=== PATIENT | female | born 1935 | race Caucasian/White ===

== ENCOUNTER → 2016-10-07 | Outpatient (CLI) | payer MEDICARE, OTHER ==
--- NOTE | 2016-10-07 17:58 | Diagnostic Imaging Report ---
PA and lateral views of the chest. Indication dyspnea. The shortness of breath. Findings: The lungs are hyperinflated with minimal right basilar atelectasis. The heart size is borderline in size. No effusion or pneumothorax. The mediastinum and joaquín appear markable. Impression: COPD. Borderline cardiac size. Minimal right basilar atelectasis. Dictated by: Dictated on workstation # [id number]
== END ==
LOC: RAD 14:49
PROVIDERS: ATTEND Internal Medicine Critical Care Medicine
DX: J45.909 Unspecified asthma, uncomplicated (principal); R06.00 Dyspnea, unspecified; E66.9 Obesity, unspecified; G47.33 Obstructive sleep apnea (adult) (pediatric)
CPT/HCPCS: 71020

== ENCOUNTER → 2016-11-30 | Outpatient (CLI) | payer MEDICARE, OTHER ==
[~2016-11-30] MED LIST: CATHETER FLUSH 10 ML SYR IV PRN; IOHEXOL 350 MG/ML 100 ML (OMNIPAQUE 350) VIAL IV ONE
[2016-11-30 10:01] LABS: BLOOD UREA NITROGEN 9 MG/DL (7-18); BUN/CREATININE RATIO 13; CREATININE SERUM 0.67 MG/DL (0.60-1.30); GFR ESTIMATED > 60
--- NOTE | 2016-11-30 10:21 | Diagnostic Imaging Report ---
EXAMINATION: Bilateral lower extremity duplex venous ultrasound. TECHNIQUE: DVT protocol. Multiple sonographic images with color Doppler and waveform interrogation were performed of the lower extremity veins, bilaterally, with compression and augmentation maneuvers. INDICATION: Bilateral leg swelling. FINDINGS: The lower extremity veins from the common femoral veins to below the knee veins were examined with normal color-flow, compressibility and normal waveform demonstrated. The great saphenous vein bilaterally is patent. IMPRESSION: No evidence of DVT in either lower extremity. Dictated by: Dictated on workstation # [id number]
--- NOTE | 2016-11-30 11:22 | Diagnostic Imaging Report ---
PROCEDURE: CT angiography of the chest with contrast. TECHNIQUE: Multiple contiguous axial images were obtained through the chest after uneventful bolus administration of intravenous contrast. Reconstructed CTA MIP acquisitions were also performed. INDICATION: Dyspnea. FINDINGS: The pulmonary arterial branch is widely patent. No filling defect or PE. The thoracic aorta is patent and nonaneurysmal. No acute or focal infiltrate. No lung mass. No thoracic adenopathy. No effusion or pneumothorax. No acute soft tissue or osseous chest wall disease. There is a well-defined low-density nodular mass in the right adrenal isthmus, most suggestive of adenoma. The partially visualized upper abdominal structures appear nonacute. IMPRESSION: Negative for PE or other acute pathology. Dictated by: Dictated on workstation # [id number]
== END ==
LOC: RAD 09:24
PROVIDERS: ATTEND Nurse Practitioner Family
DX: M79.89 Other specified soft tissue disorders (principal); R06.00 Dyspnea, unspecified
CPT/HCPCS: 36415; 71275; 82565; 84520; 93970

== ENCOUNTER → 2018-08-07 | Outpatient (CLI) | payer MEDICARE, OTHER ==
[2018-08-07 16:18] LABS: BUN/CREATININE RATIO 15; CARBON DIOXIDE 18 MMOL/L (21-32); CHLORIDE 98 MMOL/L (98-107); CREATININE SERUM 0.65 MG/DL (0.60-1.30); GFR ESTIMATED > 60; GLUCOSE 102 MG/DL (70-105); POTASSIUM 4.2 MMOL/L (3.6-5.0); SODIUM 137 MMOL/L (135-145)
[2018-08-07 16:19] LABS: CALCIUM 10.3 MG/DL (8.5-10.1)
== END ==
LOC: LAB FS 15:15
PROVIDERS: ATTEND Nurse Practitioner Family
DX: I10 Essential (primary) hypertension (principal); E78.2 Mixed hyperlipidemia; I35.0 Nonrheumatic aortic (valve) stenosis; R55 Syncope and collapse; R60.0 Localized edema; R06.09 Other forms of dyspnea; R53.83 Other fatigue; I27.21 Secondary pulmonary arterial hypertension; G47.33 Obstructive sleep apnea (adult) (pediatric); Z99.89 Dependence on other enabling machines and devices
CPT/HCPCS: 36415; 80048

== ENCOUNTER → 2019-03-12 | Outpatient (CLI) | payer MEDICARE, OTHER ==
--- NOTE | 2019-03-12 14:29 | Diagnostic Imaging Report ---
INDICATION: Left wrist pain AP, oblique and lateral views of the left wrist are obtained. There is marked degenerative change at the 1st and 2nd carpometacarpal joints as well as at the radial aspect of the carpus. There is calcification within triangle fibrocartilage complex. No acute fracture seen. IMPRESSION: Marked radial sided degenerative findings and chondrocalcinosis of the triangle fibrocartilage. Dictated by: Dictated on workstation # [id number]
== END ==
LOC: RAD FS 14:14
PROVIDERS: ATTEND Nurse Practitioner
DX: M11.232 Other chondrocalcinosis, left wrist (principal); M19.032 Primary osteoarthritis, left wrist
CPT/HCPCS: 73110

== ENCOUNTER → 2019-05-02 | Outpatient (CLI) | payer MEDICARE, OTHER | LOC: RT 12:34 | PROVIDERS: ATTEND Nurse Practitioner Family | DX: Z01.810 Encounter for preprocedural cardiovascular examination (principal); I35.0 Nonrheumatic aortic (valve) stenosis; R53.83 Other fatigue; Z79.899 Other long term (current) drug therapy | CPT/HCPCS: 94060; 94726; 94729 ==

== ENCOUNTER → 2019-06-25 | Outpatient (CLI) | payer MEDICARE, OTHER ==
--- NOTE | 2019-06-25 10:32 | Diagnostic Imaging Report ---
INDICATION: Lower respiratory infection. EXAMINATION: PA and lateral chest. FINDINGS: There are postop changes from aortic valve replacement. The patient has a dual-chamber pacemaker. The heart size and pulmonary vascularity are normal. The lungs are clear. There are no effusions or pneumothoraces. IMPRESSION: No acute abnormalities in the chest. Dictated by: Dictated on workstation # [id number]
== END ==
LOC: RAD FS 10:05
PROVIDERS: ATTEND Family Medicine
DX: J22 Unspecified acute lower respiratory infection (principal)
CPT/HCPCS: 71046

== ENCOUNTER → 2019-06-27 | Outpatient (CLI) | payer MEDICARE, OTHER ==
[2019-06-27 16:17] LABS: AMORPHOUS SEDIMENT,UR LARGE AMOR URATES /LPF; BILIRUBIN,URINE NEGATIVE (NEGATIVE); CALCIUM OXALATE CRYSTALS,UR FEW /LPF; CLARITY,URINE CLOUDY; COLOR,URINE YELLOW; GLUCOSE, URINE (UA) NEGATIVE (NEGATIVE); KETONES,URINE NEGATIVE (NEGATIVE); LEUKOCYTE ESTERASE ,URINE TRACE (NEGATIVE); NITRITE,URINE NEGATIVE (NEGATIVE); PH,URINE 5.5 (5-9); PROTEIN,URINE 1+ (NEGATIVE); WBC,URINE 0-2 /HPF
== END ==
LOC: LAB FS 15:59
PROVIDERS: ATTEND Family Medicine
DX: R33.9 Retention of urine, unspecified (principal); R50.9 Fever, unspecified
CPT/HCPCS: 81000

== ENCOUNTER → 2019-07-12 | Outpatient (CLI) | payer MEDICARE, OTHER ==
[2019-07-12 15:47] LABS: CLARITY,URINE SLT CLOUDY; COLOR,URINE YELLOW; GLUCOSE, URINE (UA) NEGATIVE (NEGATIVE); PH,URINE 6.5 (5-9); PROTEIN,URINE NEGATIVE (NEGATIVE)
[2019-07-12 15:48] LABS: BACTERIA,URINE LARGE /HPF; BILIRUBIN,URINE NEGATIVE (NEGATIVE); KETONES,URINE NEGATIVE (NEGATIVE); LEUKOCYTE ESTERASE ,URINE 3+ (NEGATIVE); NITRITE,URINE POSITIVE (NEGATIVE); WBC,URINE 25-50 /HPF
[2019-07-12 16:07] LABS: BUN/CREATININE RATIO 19; CARBON DIOXIDE 23 MMOL/L (21-32); CHLORIDE 94 MMOL/L (98-107); CREATININE SERUM 0.58 MG/DL (0.60-1.30); GFR ESTIMATED > 60; POTASSIUM 3.7 MMOL/L (3.6-5.0); SODIUM 132 MMOL/L (135-145)
[2019-07-12 16:08] LABS: ALANINE AMINOTRANSFERASE 14 U/L (0-55); ALBUMIN 2.6 GM/DL (3.2-4.5); ALKALINE PHOSPHATASE 65 U/L (40-136); BILIRUBIN,TOTAL 0.2 MG/DL (0.1-1.0); CALCIUM 8.6 MG/DL (8.5-10.1); GLUCOSE 91 MG/DL (70-105); TOTAL PROTEIN 6.6 GM/DL (6.4-8.2)
== END ==
LOC: LAB FS 15:29
PROVIDERS: ATTEND Family Medicine
DX: I50.43 Acute on chronic combined systolic (congestive) and diastolic (congestive) heart failure (principal); E87.1 Hypo-osmolality and hyponatremia; R35.0 Frequency of micturition
CPT/HCPCS: 36415; 80053; 81000; 87077; 87088; 87186

== ENCOUNTER → 2019-07-30 | Outpatient (CLI) | payer MEDICARE, OTHER ==
[2019-07-30 18:07] LABS: CLARITY,URINE CLOUDY; COLOR,URINE YELLOW
[2019-07-30 18:08] LABS: AMORPHOUS SEDIMENT,UR FEW AMOR URATES /LPF; BACTERIA,URINE LARGE /HPF; BILIRUBIN,URINE NEGATIVE (NEGATIVE); GLUCOSE, URINE (UA) NEGATIVE (NEGATIVE); KETONES,URINE NEGATIVE (NEGATIVE); LEUKOCYTE ESTERASE ,URINE TRACE (NEGATIVE); NITRITE,URINE POSITIVE (NEGATIVE); PROTEIN,URINE 1+ (NEGATIVE); WBC,URINE 25-50 /HPF
== END ==
LOC: LAB FS 17:33
PROVIDERS: ATTEND Family Medicine
DX: R30.0 Dysuria (principal)
CPT/HCPCS: 81000; 87088

== ENCOUNTER → 2019-08-23 | Outpatient (CLI) | payer MEDICARE, OTHER ==
[2019-08-23 15:36] LABS: HEMATOCRIT 25 % (35-52); HEMOGLOBIN 7.8 G/DL (11.5-16.0); MEAN CORPUSCULAR HEMOGLOBIN 28 PG (25-34); MEAN CORPUSCULAR HGB CONC 32 G/DL (32-36); MEAN CORPUSCULAR VOLUME 87 FL (80-99); MEAN PLATELET VOLUME 8.7 FL (7.4-10.4); PLATELET COUNT 386 10^3/uL (130-400); RED CELL DISTRIBUTION WIDTH 16.4 % (10.0-14.5); WHITE BLOOD COUNT 10.8 10^3/uL (4.3-11.0)
[2019-08-23 15:37] LABS: BASOPHILS % (AUTO) 0 % (0-10); EOSINOPHILS # (AUTO) 0.3 10^3/uL (0.0-0.3); EOSINOPHILS % (AUTO) 3 % (0-10); LYMPHOCYTES # (AUTO) 1.1 X 10^3 (1.0-4.0); LYMPHOCYTES % (AUTO) 10 % (12-44); MONOCYTES # (AUTO) 0.7 X 10^3 (0.0-1.0); MONOCYTES % (AUTO) 6 % (0-12); NEUTROPHILS # (AUTO) 8.7 X 10^3 (1.8-7.8); NEUTROPHILS % (AUTO) 80 % (42-75)
[2019-08-23 16:05] LABS: BILIRUBIN,TOTAL 0.2 MG/DL (0.1-1.0); POTASSIUM 4.5 MMOL/L (3.6-5.0)
[2019-08-23 16:06] LABS: ALBUMIN 2.8 GM/DL (3.2-4.5); TOTAL PROTEIN 6.4 GM/DL (6.4-8.2)
== END ==
LOC: IHC 14:50
PROVIDERS: ATTEND Family Medicine
DX: I11.0 Hypertensive heart disease with heart failure (principal); E87.1 Hypo-osmolality and hyponatremia; D50.9 Iron deficiency anemia, unspecified
CPT/HCPCS: 36415; 80053; 83880; 85025

== ENCOUNTER → 2019-09-10 | Outpatient (CLI) | payer MEDICARE, OTHER ==
[2019-09-10 13:25] LABS: HEMATOCRIT 24 % (35-52); HEMOGLOBIN 7.4 G/DL (11.5-16.0); MEAN CORPUSCULAR HEMOGLOBIN 26 PG (25-34); MEAN CORPUSCULAR HGB CONC 31 G/DL (32-36); MEAN CORPUSCULAR VOLUME 86 FL (80-99); MEAN PLATELET VOLUME 8.4 FL (7.4-10.4); PLATELET COUNT 335 10^3/uL (130-400); RED CELL DISTRIBUTION WIDTH 17.6 % (10.0-14.5)
[2019-09-10 13:26] LABS: BASOPHILS % (AUTO) 0 % (0-10); EOSINOPHILS # (AUTO) 0.1 10^3/uL (0.0-0.3); EOSINOPHILS % (AUTO) 1 % (0-10); LYMPHOCYTES # (AUTO) 0.9 X 10^3 (1.0-4.0); LYMPHOCYTES % (AUTO) 9 % (12-44); MONOCYTES # (AUTO) 0.7 X 10^3 (0.0-1.0); MONOCYTES % (AUTO) 7 % (0-12); NEUTROPHILS # (AUTO) 9.2 X 10^3 (1.8-7.8); NEUTROPHILS % (AUTO) 83 % (42-75)
[2019-09-10 13:51] LABS: CALCIUM 9.2 MG/DL (8.5-10.1); CREATININE SERUM 1.38 MG/DL (0.60-1.30); POTASSIUM 4.2 MMOL/L (3.6-5.0)
== END | disposition home or self-care (01) ==
LOC: LAB FS 12:46
PROVIDERS: ATTEND Student in an Organized Health Care Education/Training Program
DX: I50.32 Chronic diastolic (congestive) heart failure (principal)
CPT/HCPCS: 36415; 80048; 83880; 85025

== ENCOUNTER → 2019-09-18 | Outpatient (CLI) | payer MEDICARE, OTHER ==
[2019-09-18 15:32] LABS: BASOPHILS % (AUTO) 0 % (0-10); EOSINOPHILS % (AUTO) 1 % (0-10); HEMATOCRIT 26 % (35-52); HEMOGLOBIN 8.1 G/DL (11.5-16.0); LYMPHOCYTES % (AUTO) 8 % (12-44); MEAN CORPUSCULAR HEMOGLOBIN 27 PG (25-34); MEAN CORPUSCULAR HGB CONC 32 G/DL (32-36); MEAN CORPUSCULAR VOLUME 86 FL (80-99); MEAN PLATELET VOLUME 8.7 FL (7.4-10.4); MONOCYTES % (AUTO) 7 % (0-12); NEUTROPHILS % (AUTO) 84 % (42-75); PLATELET COUNT 434 10^3/uL (130-400); RED CELL DISTRIBUTION WIDTH 18.2 % (10.0-14.5); WHITE BLOOD COUNT 10.5 10^3/uL (4.3-11.0)
[2019-09-18 15:33] LABS: EOSINOPHILS # (AUTO) 0.1 10^3/uL (0.0-0.3); LYMPHOCYTES # (AUTO) 0.8 X 10^3 (1.0-4.0); MONOCYTES # (AUTO) 0.7 X 10^3 (0.0-1.0); NEUTROPHILS # (AUTO) 8.8 X 10^3 (1.8-7.8)
[2019-09-18 15:43] LABS: BILIRUBIN,TOTAL 0.3 MG/DL (0.1-1.0); CALCIUM 8.4 MG/DL (8.5-10.1); CREATININE SERUM 1.21 MG/DL (0.60-1.30); POTASSIUM 3.9 MMOL/L (3.6-5.0); TOTAL PROTEIN 6.6 GM/DL (6.4-8.2)
[2019-09-18 15:50] LABS: BAND NEUTROPHILS 6 %; LYMPHOCYTES % (MANUAL) 13 %; NEUTROPHILS % (MANUAL) 71 %
[2019-09-18 15:51] LABS: ANISOCYTOSIS SLIGHT; BASOPHILS % (MANUAL) 0 %; EOSINOPHILS % (MANUAL) 1 %; MONOCYTES % (MANUAL) 9 %
== END ==
LOC: LAB FS 14:55
PROVIDERS: ATTEND Family Medicine
DX: I50.9 Heart failure, unspecified (principal); D50.9 Iron deficiency anemia, unspecified; E87.1 Hypo-osmolality and hyponatremia
CPT/HCPCS: 36415; 80053; 83880; 85007; 85027

== ENCOUNTER → 2019-09-25 | Outpatient (CLI) | payer MEDICARE, OTHER ==
[2019-09-25 16:41] LABS: BASOPHILS % (AUTO) 0 % (0-10); EOSINOPHILS # (AUTO) 0.2 10^3/uL (0.0-0.3); EOSINOPHILS % (AUTO) 3 % (0-10); HEMATOCRIT 27 % (35-52); HEMOGLOBIN 8.4 G/DL (11.5-16.0); LYMPHOCYTES # (AUTO) 0.7 X 10^3 (1.0-4.0); LYMPHOCYTES % (AUTO) 10 % (12-44); MEAN CORPUSCULAR HEMOGLOBIN 27 PG (25-34); MEAN CORPUSCULAR HGB CONC 31 G/DL (32-36); MEAN CORPUSCULAR VOLUME 88 FL (80-99); MEAN PLATELET VOLUME 8.7 FL (7.4-10.4); MONOCYTES # (AUTO) 0.6 X 10^3 (0.0-1.0); MONOCYTES % (AUTO) 8 % (0-12); NEUTROPHILS # (AUTO) 5.9 X 10^3 (1.8-7.8); NEUTROPHILS % (AUTO) 79 % (42-75); PLATELET COUNT 388 10^3/uL (130-400); RED CELL DISTRIBUTION WIDTH 18.2 % (10.0-14.5); WHITE BLOOD COUNT 7.5 10^3/uL (4.3-11.0)
[2019-09-25 17:10] LABS: BILIRUBIN,TOTAL 0.3 MG/DL (0.1-1.0); CALCIUM 8.9 MG/DL (8.5-10.1); CREATININE SERUM 1.23 MG/DL (0.60-1.30)
[2019-09-25 17:11] LABS: ALBUMIN 3.3 GM/DL (3.2-4.5); TOTAL PROTEIN 7.1 GM/DL (6.4-8.2)
== END ==
LOC: LAB FS 16:14
PROVIDERS: ATTEND Student in an Organized Health Care Education/Training Program
DX: I11.0 Hypertensive heart disease with heart failure (principal); I50.43 Acute on chronic combined systolic (congestive) and diastolic (congestive) heart failure; D50.9 Iron deficiency anemia, unspecified; E44.0 Moderate protein-calorie malnutrition
CPT/HCPCS: 36415; 80053; 83880; 85025

== ENCOUNTER → 2019-10-02 | Outpatient (CLI) | payer MEDICARE, OTHER ==
[2019-10-02 19:33] LABS: POTASSIUM 4.2 MMOL/L (3.6-5.0)
[2019-10-02 19:34] LABS: CALCIUM 9.2 MG/DL (8.5-10.1); CREATININE SERUM 1.35 MG/DL (0.60-1.30); WHITE BLOOD COUNT 6.5 10^3/uL (4.3-11.0)
[2019-10-02 19:35] LABS: BASOPHILS % (AUTO) 0 % (0-10); EOSINOPHILS # (AUTO) 0.1 10^3/uL (0.0-0.3); EOSINOPHILS % (AUTO) 2 % (0-10); HEMATOCRIT 29 % (35-52); HEMOGLOBIN 8.9 G/DL (11.5-16.0); LYMPHOCYTES % (AUTO) 16 % (12-44); MEAN CORPUSCULAR HEMOGLOBIN 28 PG (25-34); MEAN CORPUSCULAR HGB CONC 31 G/DL (32-36); MEAN CORPUSCULAR VOLUME 91 FL (80-99); MEAN PLATELET VOLUME 8.5 FL (7.4-10.4); MONOCYTES # (AUTO) 0.5 X 10^3 (0.0-1.0); MONOCYTES % (AUTO) 8 % (0-12); NEUTROPHILS # (AUTO) 4.8 X 10^3 (1.8-7.8); NEUTROPHILS % (AUTO) 74 % (42-75); PLATELET COUNT 320 10^3/uL (130-400); RED CELL DISTRIBUTION WIDTH 18.8 % (10.0-14.5)
== END ==
LOC: LAB FS 18:08
PROVIDERS: ATTEND Student in an Organized Health Care Education/Training Program
DX: D59.0 Drug-induced autoimmune hemolytic anemia (principal); I50.9 Heart failure, unspecified; E44.0 Moderate protein-calorie malnutrition; E16.2 Hypoglycemia, unspecified
CPT/HCPCS: 36415; 80048; 83525; 83880; 85025

== ENCOUNTER → 2019-10-09 | Outpatient (CLI) | payer MEDICARE, OTHER ==
[2019-10-09 13:47] LABS: HEMATOCRIT 30 % (35-52); HEMOGLOBIN 9.4 G/DL (11.5-16.0); MEAN CORPUSCULAR HEMOGLOBIN 28 PG (25-34); WHITE BLOOD COUNT 5.2 10^3/uL (4.3-11.0)
[2019-10-09 13:48] LABS: BASOPHILS % (AUTO) 0 % (0-10); EOSINOPHILS # (AUTO) 0.1 10^3/uL (0.0-0.3); EOSINOPHILS % (AUTO) 2 % (0-10); LYMPHOCYTES # (AUTO) 0.9 X 10^3 (1.0-4.0); LYMPHOCYTES % (AUTO) 17 % (12-44); MEAN CORPUSCULAR HGB CONC 31 G/DL (32-36); MEAN CORPUSCULAR VOLUME 88 FL (80-99); MEAN PLATELET VOLUME 8.9 FL (7.4-10.4); MONOCYTES # (AUTO) 0.4 X 10^3 (0.0-1.0); MONOCYTES % (AUTO) 9 % (0-12); NEUTROPHILS # (AUTO) 3.7 X 10^3 (1.8-7.8); NEUTROPHILS % (AUTO) 72 % (42-75); PLATELET COUNT 360 10^3/uL (130-400); RED CELL DISTRIBUTION WIDTH 17.7 % (10.0-14.5)
[2019-10-09 15:25] LABS: BILIRUBIN,TOTAL 0.3 MG/DL (0.1-1.0); CALCIUM 9.4 MG/DL (8.5-10.1); CREATININE SERUM 1.28 MG/DL (0.60-1.30); POTASSIUM 4.1 MMOL/L (3.6-5.0)
[2019-10-09 15:26] LABS: ALBUMIN 3.5 GM/DL (3.2-4.5); TOTAL PROTEIN 7.4 GM/DL (6.4-8.2)
== END ==
LOC: LAB FS 13:26
PROVIDERS: ATTEND Family Medicine
DX: I50.9 Heart failure, unspecified (principal); D50.9 Iron deficiency anemia, unspecified; E44.0 Moderate protein-calorie malnutrition; E16.2 Hypoglycemia, unspecified
CPT/HCPCS: 36415; 80053; 83525; 83880; 85025

== ENCOUNTER → 2019-10-17 | Outpatient (CLI) | payer MEDICARE, OTHER ==
[2019-10-17 16:21] LABS: HEMATOCRIT 31 % (35-52); HEMOGLOBIN 9.7 G/DL (11.5-16.0); MEAN CORPUSCULAR HEMOGLOBIN 28 PG (25-34); MEAN CORPUSCULAR VOLUME 88 FL (80-99); MEAN PLATELET VOLUME 8.8 FL (7.4-10.4); PLATELET COUNT 328 10^3/uL (130-400); WHITE BLOOD COUNT 8.1 10^3/uL (4.3-11.0)
[2019-10-17 16:22] LABS: MEAN CORPUSCULAR HGB CONC 32 G/DL (32-36)
[2019-10-17 16:23] LABS: BASOPHILS % (AUTO) 0 % (0-10); EOSINOPHILS # (AUTO) 0.1 10^3/uL (0.0-0.3); EOSINOPHILS % (AUTO) 1 % (0-10); LYMPHOCYTES # (AUTO) 0.9 X 10^3 (1.0-4.0); LYMPHOCYTES % (AUTO) 11 % (12-44); MONOCYTES # (AUTO) 0.4 X 10^3 (0.0-1.0); MONOCYTES % (AUTO) 4 % (0-12); NEUTROPHILS # (AUTO) 6.7 X 10^3 (1.8-7.8); NEUTROPHILS % (AUTO) 83 % (42-75)
[2019-10-17 16:52] LABS: BILIRUBIN,TOTAL 0.3 MG/DL (0.1-1.0); CALCIUM 9.3 MG/DL (8.5-10.1); CREATININE SERUM 1.19 MG/DL (0.60-1.30); POTASSIUM 4.7 MMOL/L (3.6-5.0)
[2019-10-17 16:53] LABS: ALBUMIN 3.5 GM/DL (3.2-4.5); TOTAL PROTEIN 7.4 GM/DL (6.4-8.2)
== END ==
LOC: LAB FS 15:58
PROVIDERS: ATTEND Student in an Organized Health Care Education/Training Program
DX: I50.43 Acute on chronic combined systolic (congestive) and diastolic (congestive) heart failure (principal); E44.0 Moderate protein-calorie malnutrition; D50.9 Iron deficiency anemia, unspecified
CPT/HCPCS: 36415; 80053; 83880; 85025

== ENCOUNTER → 2020-01-08 | Outpatient (CLI) | payer MEDICARE, OTHER ==
[2020-01-08 12:44] LABS: HEMATOCRIT 33 % (35-52); HEMOGLOBIN 10.7 G/DL (11.5-16.0); MEAN CORPUSCULAR HEMOGLOBIN 28 PG (25-34); MEAN CORPUSCULAR VOLUME 88 FL (80-99); WHITE BLOOD COUNT 6.4 10^3/uL (4.3-11.0)
[2020-01-08 12:45] LABS: BASOPHILS % (AUTO) 0 % (0-10); EOSINOPHILS % (AUTO) 2 % (0-10); LYMPHOCYTES % (AUTO) 15 % (12-44); MEAN CORPUSCULAR HGB CONC 32 G/DL (32-36); MEAN PLATELET VOLUME 8.8 FL (7.4-10.4); MONOCYTES % (AUTO) 10 % (0-12); NEUTROPHILS % (AUTO) 73 % (42-75); PLATELET COUNT 301 10^3/uL (130-400)
[2020-01-08 12:46] LABS: EOSINOPHILS # (AUTO) 0.1 10^3/uL (0.0-0.3); MONOCYTES # (AUTO) 0.6 X 10^3 (0.0-1.0); NEUTROPHILS # (AUTO) 4.6 X 10^3 (1.8-7.8)
[2020-01-08 13:15] LABS: ALBUMIN 3.8 GM/DL (3.2-4.5); BILIRUBIN,TOTAL 0.2 MG/DL (0.1-1.0); CALCIUM 9.7 MG/DL (8.5-10.1); CREATININE SERUM 1.48 MG/DL (0.60-1.30); POTASSIUM 4.6 MMOL/L (3.6-5.0); TOTAL PROTEIN 7.9 GM/DL (6.4-8.2)
== END ==
LOC: LAB FS 12:10
PROVIDERS: ATTEND Family Medicine
DX: I50.22 Chronic systolic (congestive) heart failure (principal); D64.9 Anemia, unspecified; R79.89 Other specified abnormal findings of blood chemistry
CPT/HCPCS: 36415; 80053; 83880; 85025

== ENCOUNTER → 2020-09-09 | Outpatient (CLI) | payer MEDICARE, OTHER ==
[2020-09-09 11:24] LABS: CALCIUM 9.7 MG/DL (8.5-10.1); CREATININE SERUM 1.29 MG/DL (0.60-1.30); POTASSIUM 3.9 MMOL/L (3.6-5.0)
[2020-09-09 11:25] LABS: ALBUMIN 4.2 GM/DL (3.2-4.5); BILIRUBIN,TOTAL 0.6 MG/DL (0.1-1.0); TOTAL PROTEIN 7.8 GM/DL (6.4-8.2)
== END ==
LOC: LAB FS 10:23
PROVIDERS: ATTEND Family Medicine
DX: I10 Essential (primary) hypertension (principal)
CPT/HCPCS: 36415; 80053; 80061

== ENCOUNTER → 2020-09-12 | Outpatient (CLI) | payer MEDICARE, OTHER ==
[2020-09-12 14:12] LABS: BASOPHILS % (AUTO) 0 % (0-10); EOSINOPHILS % (AUTO) 2 % (0-10); HEMATOCRIT 39 % (35-52); HEMOGLOBIN 12.8 G/DL (11.5-16.0); LYMPHOCYTES % (AUTO) 22 % (12-44); MEAN CORPUSCULAR HEMOGLOBIN 31 PG (25-34); MEAN CORPUSCULAR HGB CONC 33 G/DL (32-36); MEAN CORPUSCULAR VOLUME 93 FL (80-99); MONOCYTES % (AUTO) 9 % (0-12); NEUTROPHILS # (AUTO) 4.1 X 10^3 (1.8-7.8); NEUTROPHILS % (AUTO) 67 % (42-75); PLATELET COUNT 226 10^3/uL (130-400); WHITE BLOOD COUNT 6.1 10^3/uL (4.3-11.0)
[2020-09-12 14:13] LABS: EOSINOPHILS # (AUTO) 0.2 10^3/uL (0.0-0.3); LYMPHOCYTES # (AUTO) 1.3 X 10^3 (1.0-4.0); MONOCYTES # (AUTO) 0.5 X 10^3 (0.0-1.0)
== END ==
LOC: LAB FS 13:33
PROVIDERS: ATTEND Family Medicine
DX: N19 Unspecified kidney failure (principal)
CPT/HCPCS: 36415; 85025

== ENCOUNTER → 2020-09-12 | Outpatient (CLI) | payer MEDICARE, OTHER | LOC: LAB FS 13:37 | PROVIDERS: ATTEND Ophthalmology | DX: Z01.89 Encounter for other specified special examinations (principal) | CPT/HCPCS: 36415; 85652; 86141 ==

== ENCOUNTER → 2021-10-12 | Outpatient (CLI) | payer MEDICARE, OTHER ==
[2021-10-12 13:19] LABS: HEMATOCRIT 36 % (35-52); HEMOGLOBIN 12.4 g/dL (11.5-16.0); LYMPHOCYTES % (AUTO) 17 % (12-44); MEAN CORPUSCULAR HEMOGLOBIN 31 pg (25-34); MEAN CORPUSCULAR HGB CONC 34 g/dL (32-36); MEAN CORPUSCULAR VOLUME 91 fL (80-99); NEUTROPHILS % (AUTO) 74 % (42-75); PLATELET COUNT 227 10^3/uL (130-400); WHITE BLOOD COUNT 7.2 10^3/uL (4.3-11.0)
[2021-10-12 13:20] LABS: BASOPHILS % (AUTO) 0 % (0-10); EOSINOPHILS # (AUTO) 0.1 10^3/uL (0.0-0.3); EOSINOPHILS % (AUTO) 1 % (0-10); LYMPHOCYTES # (AUTO) 1.2 10^3/uL (1.0-4.0); MONOCYTES # (AUTO) 0.6 10^3/uL (0.0-1.0); MONOCYTES % (AUTO) 8 % (0-12); NEUTROPHILS # (AUTO) 5.3 10^3/uL (1.8-7.8)
[2021-10-12 13:38] LABS: POTASSIUM 4.2 MMOL/L (3.6-5.0)
[2021-10-12 13:39] LABS: ALBUMIN 4.3 GM/DL (3.2-4.5); BILIRUBIN,TOTAL 0.4 MG/DL (0.1-1.0); CALCIUM 9.9 MG/DL (8.5-10.1); CREATININE SERUM 1.34 MG/DL (0.60-1.30); TOTAL PROTEIN 7.5 GM/DL (6.4-8.2)
== END ==
LOC: LAB FS 12:40
PROVIDERS: ATTEND Family Medicine
DX: Z00.01 Encounter for general adult medical examination with abnormal findings (principal); D50.9 Iron deficiency anemia, unspecified; J30.2 Other seasonal allergic rhinitis; K21.9 Gastro-esophageal reflux disease without esophagitis; F32.9 Major depressive disorder, single episode, unspecified; I48.0 Paroxysmal atrial fibrillation; I10 Essential (primary) hypertension
CPT/HCPCS: 36415; 80053; 80061; 83540; 83550; 85025

== ENCOUNTER 2022-12-02 12:05 | Emergency (ER) | payer MEDICARE, OTHER ==
--- NOTE | 2022-12-02 12:23 | ED General ---
General Chief Complaint: Fever-Adult/Adol Stated Complaint: FEVER History of Present Illness Date Seen by Provider: Dec 02, 2022 Time Seen by Provider: 12:08 Initial Comments 87 yr F with PMH of A-FIB /pacemaker and TAVR in 2019/ seasonal allergies, is brought to the ER via [facility] with c/o generalized weakness and altered mental status which began today morning. EMS reports that pt's O2 saturation was 85% on room air when they got there and went up to 92% on 4L of oxygen. In the ER she is on 1 to 2 L of O2 Pt lives with her daughter who noticed the pt appeared tired and appeared too exhausted to even speak much. Pt was also thought to have a fever at home as per her son who gave the history. Pt takes a long time to answer a question and is keeping her eyes closed the whole time a if she is exhausted. Denies known sick contacts, cough, abdominal pain, chest pain, SOB. Pt gets around the house at baseline with a cane and sometimes uses a walker. Allergies and Home Medications Allergies Coded Allergies: No Allergy Information Available (Unverified , 11/30/16) Patient Home Medication List Home Medication List Reviewed: Yes Review of Systems Review of Systems Constitutional: see HPI, malaise, weakness EENTM: no symptoms reported Respiratory: see HPI Cardiovascular: no symptoms reported Gastrointestinal: no symptoms reported Genitourinary: no symptoms reported Musculoskeletal: no symptoms reported Skin: no symptoms reported Psychiatric/Neurological: See HPI Hematologic/Lymphatic: No Symptoms Reported Immunological/Allergic: no symptoms reported Past Rtceqdd-Oafrfh-Vpcpbh Hx Patient Social History Tobacco Use?: No Smoking Status: Never a Smoker Smokeless Tobacco Frequency: Never a User Use of E-Cig and/or Vaping dev: No Use of E-Cig and/or Vaping Cullen: Never a User Substance use?: No Alcohol Use?: No Pt feels they are or have been: No Physical Exam Vital Signs Vital Signs - First Documented 12/02/22 12:05 Temp 37.7 Pulse 79 Resp 15 B/P (MAP) 132/60 (84) O2 Delivery Room Air Capillary Refill : Height, Weight, BMI Height: '" Weight: lbs. oz. kg; BMI Method: General Appearance: No Apparent Distress, WD/WN HEENT: PERRL/EOMI, Normal ENT Inspection, Other Neck: Full Range of Motion, Normal Inspection, Non Tender, Supple Respiratory: Chest Non Tender, Lungs Clear, Normal Breath Sounds, No Accessory Muscle Use Cardiovascular: Regular Rate, Rhythm, Systolic Murmur Gastrointestinal: Normal Bowel Sounds, No Organomegaly, Non Tender, Soft Back: No CVA Tenderness Neurologic/Psychiatric: Alert, No Motor/Sensory Deficits, Other (Patient is able to say her name, but she speaks extremely slowly and does not answer many of the questions.) Skin: Other (Mild tenting of skin) Lymphatic: No Adenopathy Focused Exam Lactate Level 12/02/22 12:16: Lactic Acid Level 0.97 Lactic Acid Level Laboratory Tests Test 12/02/22 12:16 Lactic Acid Level 0.97 MMOL/L (0.50-2.00) Progress/Results/Core Measures Suspected Sepsis SIRS Temperature: Pulse: Respiratory Rate: Laboratory Tests 12/02/22 12:16: White Blood Count 8.3 Blood Pressure / Mean: 12/02/22 12:16: Lactic Acid Level 0.97 Laboratory Tests 12/02/22 12:16: Creatinine 1.24, INR Comment 1.1, Platelet Count 102L, Total Bilirubin 0.8 Results/Orders Lab Results Laboratory Tests Test 12/02/22 12:16 12/02/22 12:29 12/02/22 13:11 Range/Units White Blood Count 8.3 4.3-11.0 10^3/uL Red Blood Count 3.67 L 3.80-5.11 10^6/uL Hemoglobin 11.0 L 11.5-16.0 g/dL Hematocrit 33 L 35-52 % Mean Corpuscular Volume 89 80-99 fL Mean Corpuscular Hemoglobin 30 25-34 pg Mean Corpuscular Hemoglobin Concent 34 32-36 g/dL Red Cell Distribution Width 13.8 10.0-14.5 % Platelet Count 102 L 130-400 10^3/uL Mean Platelet Volume 8.8 L 9.0-12.2 fL Immature Granulocyte % (Auto) 0 % Neutrophils (%) (Auto) 87 H 42-75 % Lymphocytes (%) (Auto) 8 L 12-44 % Monocytes (%) (Auto) 4 0-12 % Eosinophils (%) (Auto) 0 0-10 % Basophils (%) (Auto) 0 0-10 % Neutrophils # (Auto) 7.3 1.8-7.8 10^3/uL Lymphocytes # (Auto) 0.7 L 1.0-4.0 10^3/uL Monocytes # (Auto) 0.3 0.0-1.0 10^3/uL Eosinophils # (Auto) 0.0 0.0-0.3 10^3/uL Basophils # (Auto) 0.0 0.0-0.1 10^3/uL Immature Granulocyte # (Auto) 0.0 0.0-0.1 10^3/uL Neutrophils % (Manual) 62 % Lymphocytes % (Manual) 4 % Monocytes % (Manual) 5 % Eosinophils % (Manual) 0 % Basophils % (Manual) 0 % Metamyelocytes % 1 % Band Neutrophils 28 % Platelet Estimate DECREASED Percent Immature Platelet Fraction 1.4 0.0-7.6 % Blood Morphology Comment NORMAL Prothrombin Time 14.9 H 12.2-14.7 SEC INR Comment 1.1 0.8-1.4 Activated Partial Thromboplast Time 37 H 24-35 SEC D-Dimer 2.62 H 0.00-0.49 UG/ML Sodium Level 130 L 135-145 MMOL/L Potassium Level 4.0 3.6-5.0 MMOL/L Chloride Level 96 L 98-107 MMOL/L Carbon Dioxide Level 24 21-32 MMOL/L Anion Gap 10 5-14 MMOL/L Blood Urea Nitrogen 18 7-18 MG/DL Creatinine 1.24 0.60-1.30 MG/DL Estimat Glomerular Filtration Rate 43 BUN/Creatinine Ratio 15 Glucose Level 126 H 70-105 MG/DL Lactic Acid Level 0.97 0.50-2.00 MMOL/L Calcium Level 9.0 8.5-10.1 MG/DL Corrected Calcium 9.6 8.5-10.1 MG/DL Magnesium Level 1.9 1.6-2.4 MG/DL Total Bilirubin 0.8 0.1-1.0 MG/DL Aspartate Amino Transf (AST/SGOT) 28 5-34 U/L Alanine Aminotransferase (ALT/SGPT) 18 0-55 U/L Alkaline Phosphatase 78 40-136 U/L Troponin I < 0.30 <0.30 NG/ML Pro-B-Type Natriuretic Peptide 42308.0 H <450.0 PG/ML Total Protein 7.9 6.4-8.2 GM/DL Albumin 3.2 3.2-4.5 GM/DL Influenza Type A (RT-PCR) Not Detected Not Detecte Influenza Type B (RT-PCR) Not Detected Not Detecte SARS-CoV-2 RNA (RT-PCR) Not Detected Not Detecte Urine Color YELLOW Urine Clarity CLOUDY Urine pH 6.0 5-9 Urine Specific [place] 1.010 L 1.016-1.022 Urine Protein 2+ H NEGATIVE Urine Glucose (UA) NEGATIVE NEGATIVE Urine Ketones NEGATIVE NEGATIVE Urine Nitrite NEGATIVE NEGATIVE Urine Bilirubin NEGATIVE NEGATIVE Urine Urobilinogen 4.0 < = 1.0 MG/DL Urine Leukocyte Esterase 2+ H NEGATIVE Urine RBC (Auto) 2+ H NEGATIVE Urine RBC 2-5 H /HPF Urine WBC 5-10 H /HPF Urine Squamous Epithelial Cells RARE /HPF Urine Renal Epithelial Cells RARE /HPF Urine Crystals NONE /LPF Urine Bacteria LARGE H /HPF Urine Casts NONE /LPF Urine Mucus NEGATIVE /LPF Urine Culture Indicated YES My Orders Orders - WILLIAN ALMONTE MD Ct Head Wo-R/O Stroke (12/02/22 12:23) Chest 1 View Ap/Pa Only (12/02/22 12:23) Continuous Ekg Monitoring (12/02/22 12:24) Ekg Tracing (12/02/22 12:24) Cbc With Automated Diff (12/02/22 12:24) Comprehensive Metabolic Panel (12/02/22 12:24) Fibrin Degradation Products (12/02/22 12:24) Magnesium (12/02/22 12:24) Protime With Inr (12/02/22 12:24) Partial Thromboplastin Time (12/02/22 12:24) Ua Culture If Indicated (12/02/22 12:24) Blood Culture (12/02/22 12:24) Probnp Fs (12/02/22 12:24) Troponin I Fs (12/02/22 12:24) Lactic Acid Analyzer (12/02/22 12:24) Manual Differential (12/02/22 12:16) Covid 19 Inhouse Test (12/02/22 12:50) Influenza A And B By Pcr (12/02/22 12:50) Catheter(Urinary) Insert & Ass 03,15 (12/02/22 12:53) Lidocaine 2% (Urojet) (Lidocaine 2% (Uro (12/02/22 13:00) Ed Iv/Invasive Line Start (12/02/22 12:54) Ct Angio Chest W (R/O Pe) (12/02/22 13:17) Ed Iv/Invasive Line Start (12/02/22 13:19) Ns Iv 1000 Ml (Sodium Chloride 0.9%) (12/02/22 13:19) Furosemide Injection (Furosemide Injec (12/02/22 13:30) Ct Angio Chest W (12/02/22 ) Iohexol Injection (Omnipaque 350 Mg/Ml 1 (12/02/22 14:00) Received Contrast (Hold Metformin- Contr (12/02/22 14:00) Ns (Ivpb) 100 Ml (Sodium Chloride 0.9% 1 (12/02/22 14:00) Urine Culture (12/02/22 13:11) Ceftriaxone Iv/Im (Ceftriaxone Iv/Im) (12/02/22 14:35) Ns (Ivpb) 50 Ml (Sodium Chloride 0.9% 50 (12/02/22 14:46) Ceftriaxone Iv/Im (Ceftriaxone Iv/Im) (12/02/22 14:46) Medications Given in ED Current Medications Medications Dose Ordered Sig/Kely Route Start Time Stop Time Status Last Admin Dose Admin Furosemide 40 mg ONCE ONCE IVP 12/02/22 13:30 12/02/22 13:56 DC 12/02/22 14:03 40 MG Iohexol 100 ml ONCE ONCE IV 12/02/22 14:00 12/02/22 14:01 DC 12/02/22 13:59 80 ML Sodium Chloride 100 ml ONCE ONCE IV 12/02/22 14:00 12/02/22 14:01 DC 12/02/22 13:58 100 ML Vital Signs/I&O 12/02/22 12/02/22 12:05 12:05 Temp 37.7 Pulse 79 Resp 15 B/P (MAP) 132/60 (84) O2 Delivery Room Air Room Air Capillary Refill : Progress Note : Progress Note 1. GENERALIZED WEAKNESS/ AMS DUE TO UTI: - CT HEAD: No large acute territorial ischemia, mass, or hemorrhage. Chronic microvascular disease. Generalized parenchymal volume loss. Likely arachnoid cyst in the posterior fossa measuring 2.5 cm. - CXR: There is cardiomegaly and mild pulmonary vascular congestion. There is no lung infiltrate seen. - EKG: paced rhythm - Troponin: undetected - CBC: WBC is normal, although borderline elevation of neutrophils , LACTIC ACID is normal - CMP: low Na is 130 - UA is positive for leukocyte esterase, WBC, RBC, bacteria - Headley insertion for input and output - Ceftriaxone 1gm iv STAT and gentle hydration - Pt has become more alert and is conversing and shows a huge imrpovement with treatment. Will discharge pt to follow up with cardiology and PCP in the next 7 days - Cefpodoxime 100mg bid for 7 days - Adequate hydration advised. The patient was seen in the ED, and treated appropriately to presentation at a specific point in time. Patient is informed that there is a possibility that disease and illness can evolve and change in acuity rapidly or slowly after patient is discharged from the ER. Precautionary advice given to the patient for immediate return to ER if symptoms worsen or do not resolve, and to seek emergency care sooner rather than later. Pt also advised on the importance of PCP follow up and compliance with management and follow up plan with PCP and/or specialist, as this is part of the management plan. Pt verbally expressed understanding. 2. ELEVATED D-DIMER: - D-dimer is 2.62 - CTA CHEST: No pulmonary emboli. Cardiomegaly with features of chronic elevated right heart pressure. Trace bilateral pleural effusions. 3. ACUTE CHF: - BNP:14,616 - Headley insertion for input and output - Lasix 40 iv STAT -- Pt is on Torsemide 20mg daily. Advised to increase to 40mg daily until she sees her college teacher. 4. HYPONATREMIA: - s. Na: 130 - NS ivf, gentle hydration ECG Initial ECG Impression Date: Dec 02, 2022 Initial ECG Impression Time: 12:41 Initial ECG Rate: 69 Initial ECG Intervals paced rhythm Initial ECG Comparisson: No Previous ECG Available Diagnostic Imaging Diagonstic Imaging: Xray, CT Plain Films/CT/US/NM/MRI: chest, head Comments [facility] [place], [place] NAME: WHITNEY TONEY [facility] REC#: [id number] PT STATUS: REG ER : 1935 PHYSICIAN: WILLIAN ALMONTE MD ADMIT DATE: 12/02/22/ER FS Draft Date of Exam:12/02/22 CT ANGIO CHEST W PROCEDURE: CT angiography Chest. TECHNIQUE: After intravenous administration of contrast, thin section axial CT angiography of the chest was performed. 3D MIP reconstructions were made. All CT scans use one or more of the following dose optimizing techniques: Automated exposure control, MA and/or KvP adjustment based on a patient size and exam type, or iterative reconstruction. INDICATION: Fever with elevated D-dimer. COMPARISON: 06/30/2016. FINDINGS: Vasculature: No pulmonary emboli. Thoracic aorta is normal in caliber. It is not adequately opacified and cannot be adequately assessed for dissection. Heart and mediastinum: Visualized thyroid is normal. No supraclavicular, axillary, or intra-thoracic lymphadenopathy. Cardiomegaly is present with severe dilation of bilateral atria. There is reflux of contrast material into the IVC likely due to chronic elevated right heart pressures. Pleura: Trace bilateral pleural effusions. No pneumothorax. Lungs and airway: No endoluminal lesion in the trachea or central bronchi. No pneumonia or edema. No suspicious pulmonary nodules. A small amount of relaxation atelectasis is present in both lung bases. Upper abdomen: No concerning abnormality in the upper abdomen. Musculoskeletal: No concerning osseous lesion. IMPRESSION: 1. No pulmonary emboli. 2. Cardiomegaly with features of chronic elevated right heart pressure. 3. Trace bilateral pleural effusions. Dictated on workstation # [id number] Dict: 12/02/22 1413 Trans: 12/02/22 1420 [id number] Interpreted by: JUDY CHOU MD Electronically signed by: [facility] [place] [place] NAME: WHITNEY TONEY [facility] REC#: [id number] PT STATUS: REG ER : 1935 PHYSICIAN: WILLIAN ALMONTE MD ADMIT DATE: 12/02/22/ER FS Draft Date of Exam:12/02/22 CHEST 1 VIEW AP/PA ONLY CLINICAL INDICATION: Patient with fever. EXAM: Portable chest x-ray upright view. COMPARISON: Chest x-ray dated 06/25/2019. FINDINGS: Lungs/pleura: Lungs are clear. There is no pneumothorax. There is no pleural effusion. Mediastinum: Unremarkable. Pulmonary vasculature: There is mild pulmonary vascular congestion. Heart: There is cardiomegaly. Valvuloplasty changes are seen. There is cardiac pacemaker overlying the left chest region with 2 leads projecting over the heart which appear intact. Bones/extrathoracic soft tissue: There are degenerative spurs involving the thoracic spine. IMPRESSION: 1: There is cardiomegaly and mild pulmonary vascular congestion. 2: There is no lung infiltrate seen. Dictated on workstation # [id number] Dict: 12/02/22 1237 Trans: 12/02/22 1242 [facility] [id number] Interpreted by: DISHA JONES MD Electronically signed by: [facility] [place] [place] NAME: WHITNEY TONEY REC#: [id number] PT STATUS: REG ER : 1935 PHYSICIAN: WILLIAN ALMONTE MD ADMIT DATE: 12/02/22/ER FS Draft Date of Exam:12/02/22 CT HEAD WO-R/O STROKE EXAMINATION: CT head without contrast. TECHNIQUE: Multiple contiguous axial images were obtained through the brain without the use of intravenous contrast. All CT scans use one or more of the following dose optimizing techniques: automated exposure control, MA and/or KvP adjustment based on patient size and exam type or iterative reconstruction. HISTORY: Generalized weakness. Confusion. COMPARISON: None available. FINDINGS: No large acute territorial ischemia, mass, or hemorrhage. No midline shift or mass effect. Likely arachnoid cyst is seen in the posterior fossa measuring 2.5 cm. Decreased attenuation is seen in the periventricular and subcortical white matter. The ventricles and cortical sulci are prominent. The basilar cisterns are patent and unremarkable. Bilateral lens implants are noted. Mucosal thickening is seen in the right maxillary sinus and right ethmoid sinuses. Mastoid air cells are clear. No soft tissue abnormality is seen. No osseus lesions or fractures are seen. IMPRESSION: 1. No large acute territorial ischemia, mass, or hemorrhage. 2. Chronic microvascular disease. 3. Generalized parenchymal volume loss. 4. Likely arachnoid cyst in the posterior fossa measuring 2.5 cm. Dictated on workstation # [id number] Dict: 12/02/22 1237 Trans: 12/02/22 1241 [facility] [id number] Interpreted by: LUISA PARDO DO Electronically signed by: Departure Impression Primary Impression: AMS (altered mental status) Qualified Codes: R41.82 - Altered mental status, unspecified Additional Impressions: Generalized weakness Acute cystitis with hematuria Hyponatremia Dehydration Elevated d-dimer Disposition: HOME, SELF-CARE Condition: Stable Departure-Patient Inst. Referrals: MARYAM ALONSO MD (PCP/Family) Primary Care Physician Patient Instructions: Dehydration, Adult (DC), Altered Mental Status, Acute Cystitis (DC), Why Water Is Important to Health, Urinary Tract Infection, Adult ED, Generalized Weakness, Hyponatremia Add. Discharge Instructions: - Will discharge pt to follow up with cardiology and PCP in the next 7 days - Cefpodoxime 100mg bid for 7 days - Adequate hydration advised. -Advised to increase Torsemide to 40mg daily until she sees her college teacher. All discharge instructions reviewed with patient and/or family. Voiced unders tanding. Scripts Cefpodoxime Proxetil (Cefpodoxime Proxetil) 100 Mg Tablet 100 MG PO BID for 7 Days, #14 TAB Prov: WILLIAN ALMONTE MD 12/02/22 Torsemide (Torsemide) 20 Mg Tablet 40 MG PO DAILY for 14 Days, #14 TAB Prov: WILLIAN ALMONTE MD 12/02/22 WILLIAN ALMONTE MD Dec 02, 2022 12:23
[2022-12-02 12:32] LABS: BASOPHILS % (AUTO) 0 % (0-10); EOSINOPHILS % (AUTO) 0 % (0-10); HEMATOCRIT 33 % (35-52); LYMPHOCYTES # (AUTO) 0.7 10^3/uL (1.0-4.0); LYMPHOCYTES % (AUTO) 8 % (12-44); MEAN CORPUSCULAR HEMOGLOBIN 30 pg (25-34); MEAN CORPUSCULAR HGB CONC 34 g/dL (32-36); MEAN CORPUSCULAR VOLUME 89 fL (80-99); MEAN PLATELET VOLUME 8.8 fL (9.0-12.2); MONOCYTES # (AUTO) 0.3 10^3/uL (0.0-1.0); MONOCYTES % (AUTO) 4 % (0-12); NEUTROPHILS # (AUTO) 7.3 10^3/uL (1.8-7.8); NEUTROPHILS % (AUTO) 87 % (42-75); WHITE BLOOD COUNT 8.3 10^3/uL (4.3-11.0)
--- NOTE | 2022-12-02 12:41 | Diagnostic Imaging Report ---
EXAMINATION: CT head without contrast. TECHNIQUE: Multiple contiguous axial images were obtained through the brain without the use of intravenous contrast. All CT scans use one or more of the following dose optimizing techniques: automated exposure control, MA and/or KvP adjustment based on patient size and exam type or iterative reconstruction. HISTORY: Generalized weakness. Confusion. COMPARISON: None available. FINDINGS: No large acute territorial ischemia, mass, or hemorrhage. No midline shift or mass effect. Likely arachnoid cyst is seen in the posterior fossa measuring 2.5 cm. Decreased attenuation is seen in the periventricular and subcortical white matter. The ventricles and cortical sulci are prominent. The basilar cisterns are patent and unremarkable. Bilateral lens implants are noted. Mucosal thickening is seen in the right maxillary sinus and right ethmoid sinuses. Mastoid air cells are clear. No soft tissue abnormality is seen. No osseus lesions or fractures are seen. IMPRESSION: 1. No large acute territorial ischemia, mass, or hemorrhage. 2. Chronic microvascular disease. 3. Generalized parenchymal volume loss. 4. Likely arachnoid cyst in the posterior fossa measuring 2.5 cm. Dictated by: Dictated on workstation # [id number]
--- NOTE | 2022-12-02 12:42 | Diagnostic Imaging Report ---
CLINICAL INDICATION: Patient with fever. EXAM: Portable chest x-ray upright view. COMPARISON: Chest x-ray dated 06/25/2019. FINDINGS: Lungs/pleura: Lungs are clear. There is no pneumothorax. There is no pleural effusion. Mediastinum: Unremarkable. Pulmonary vasculature: There is mild pulmonary vascular congestion. Heart: There is cardiomegaly. Valvuloplasty changes are seen. There is cardiac pacemaker overlying the left chest region with 2 leads projecting over the heart which appear intact. Bones/extrathoracic soft tissue: There are degenerative spurs involving the thoracic spine. IMPRESSION: 1: There is cardiomegaly and mild pulmonary vascular congestion. 2: There is no lung infiltrate seen. Dictated by: Dictated on workstation # [id number]
[2022-12-02 13:12] LABS: FIBRIN DEGRADATION PRODUCTS 2.62 UG/ML (0.00-0.49); INR 1.1 (0.8-1.4); PROTHROMBIN TIME PATIENT 14.9 SEC (12.2-14.7)
[2022-12-02 13:13] LABS: CHLORIDE 96 MMOL/L (98-107); SODIUM 130 MMOL/L (135-145)
[2022-12-02 13:14] LABS: ALANINE AMINOTRANSFERASE 18 U/L (0-55); ALKALINE PHOSPHATASE 78 U/L (40-136); BILIRUBIN,TOTAL 0.8 MG/DL (0.1-1.0); BUN/CREATININE RATIO 15; CARBON DIOXIDE 24 MMOL/L (21-32); CREATININE SERUM 1.24 MG/DL (0.60-1.30); GFR ESTIMATED 43; GLUCOSE 126 MG/DL (70-105); MAGNESIUM 1.9 MG/DL (1.6-2.4)
[2022-12-02 13:15] LABS: BILIRUBIN,URINE NEGATIVE (NEGATIVE); CLARITY,URINE CLOUDY; COLOR,URINE YELLOW; GLUCOSE, URINE (UA) NEGATIVE (NEGATIVE); KETONES,URINE NEGATIVE (NEGATIVE); LEUKOCYTE ESTERASE ,URINE 2+ (NEGATIVE); NITRITE,URINE NEGATIVE (NEGATIVE); PROTEIN,URINE 2+ (NEGATIVE)
[2022-12-02 13:16] LABS: ALBUMIN 3.2 GM/DL (3.2-4.5); TOTAL PROTEIN 7.9 GM/DL (6.4-8.2)
[2022-12-02 13:54] LABS: BACTERIA,URINE LARGE /HPF; RENAL EPITHELIAL CELLS,URINE RARE /HPF; SQUAMOUS EPITHELIAL CELL,UR RARE /HPF
[2022-12-02] MEDS: NS 100 ML (IVPB) BAG IV ONE (13:58)
[2022-12-02] MEDS: IOHEXOL 350 MG/ML 100 ML (OMNIPAQUE 350) VIAL IV ONE (13:59)
[2022-12-02] MEDS ORDERED: HOLD METFORMIN - RECEIVED CONTRAST 20 ML VIAL IV SCH (14:00)
[2022-12-02] MEDS: NS IV 1000 ML 1,000 ML IV STA (14:02)
[2022-12-02] MEDS: FUROSEMIDE INJECTION 40 MG/4 ML VIAL IVP ONE (14:03)
--- NOTE | 2022-12-02 14:21 | Diagnostic Imaging Report ---
PROCEDURE: CT angiography Chest. TECHNIQUE: After intravenous administration of contrast, thin section axial CT angiography of the chest was performed. 3D MIP reconstructions were made. All CT scans use one or more of the following dose optimizing techniques: Automated exposure control, MA and/or KvP adjustment based on a patient size and exam type, or iterative reconstruction. INDICATION: Fever with elevated D-dimer. COMPARISON: 06/30/2016. FINDINGS: Vasculature: No pulmonary emboli. Thoracic aorta is normal in caliber. It is not adequately opacified and cannot be adequately assessed for dissection. Heart and mediastinum: Visualized thyroid is normal. No supraclavicular, axillary, or intra-thoracic lymphadenopathy. Cardiomegaly is present with severe dilation of bilateral atria. There is reflux of contrast material into the IVC likely due to chronic elevated right heart pressures. Pleura: Trace bilateral pleural effusions. No pneumothorax. Lungs and airway: No endoluminal lesion in the trachea or central bronchi. No pneumonia or edema. No suspicious pulmonary nodules. A small amount of relaxation atelectasis is present in both lung bases. Upper abdomen: No concerning abnormality in the upper abdomen. Musculoskeletal: No concerning osseous lesion. IMPRESSION: 1. No pulmonary emboli. 2. Cardiomegaly with features of chronic elevated right heart pressure. 3. Trace bilateral pleural effusions. Dictated by: Dictated on workstation # [id number]
[2022-12-02 14:24] LABS: BAND NEUTROPHILS 28 %; BASOPHILS % (MANUAL) 0 %; EOSINOPHILS % (MANUAL) 0 %; LYMPHOCYTES % (MANUAL) 4 %; METAMYELOCYTES % 1 %; MONOCYTES % (MANUAL) 5 %; NEUTROPHILS % (MANUAL) 62 %
[2022-12-02 14:25] LABS: PLATELET COUNT 102 10^3/uL (130-400)
[2022-12-02 14:27] LABS: PLATELET ESTIMATE DECREASED
[2022-12-02 14:28] LABS: RBC MORPH NORMAL
[2022-12-02] MEDS: cefTRIAXone 1,000 MG VIAL IV/IM ONE (14:49)
[2022-12-02] MEDS: cefTRIAXone IV/IM 1,000 MG in NS (IVPB) 50 ML 50 ML IV STA (14:49)
[2022-12-02] MEDS: NS (IVPB) 50 ML 50 ML ONE (14:50)
[2022-12-02] MEDS: LIDOCAINE UROJET 2% GEL 10 ML PKG TOP ONE (15:16)
[2022-12-02] MEDS ORDERED: CEFP100T2 PO (15:27)
[2022-12-02] MEDS ORDERED: TORS20TA3 PO (15:27)
[2022-12-02 15:45] VITALS: BP 129/73
== END 2022-12-02 15:45 | disposition home or self-care (01) ==
LOC: EDUNIT# 12:05 → ER FS 12:06
DX: R41.82 Altered mental status, unspecified (principal); N30.00 Acute cystitis without hematuria; E87.1 Hypo-osmolality and hyponatremia; E86.0 Dehydration; R79.89 Other specified abnormal findings of blood chemistry; I50.9 Heart failure, unspecified; Z99.81 Dependence on supplemental oxygen; Z28.310 Unvaccinated for COVID-19; Z20.822 Contact with and (suspected) exposure to COVID-19
CPT/HCPCS: 36415; 70450; 71045; 71275; 80053; 81000; 83605; 83735; 83880; 84484; 85007; 85027; 85379; 85610; 85730; 87040; 87088; 87636; Q9967